=== PATIENT | female | born 1935 | race Caucasian/White ===

== ENCOUNTER → 2016-07-06 | Outpatient (CLI) | payer MEDICARE, OTHER ==
[~2016-07-06] MED LIST: KLONOPIN0.5 MG PO; LOMOTIL 0.025 M1 TA1 PO; SERTRALINE50 MG PO; VITAMIN D2000 IU PO; ZOFRAN ODT4 MG SL
== END | disposition home or self-care (01) ==
LOC: RAD 08:47
DX: J44.9 Chronic obstructive pulmonary disease, unspecified (principal)

== ENCOUNTER → 2016-07-10 | Outpatient (CLI) | payer MEDICARE, OTHER | END | disposition home or self-care (01) | LOC: MAMMO 03:01 | DX: Z12.31 Encounter for screening mammogram for malignant neoplasm of breast (principal) ==

== ENCOUNTER 2017-07-19 18:37 | Inpatient (IN) | payer MEDICARE, OTHER ==
[~2017-07-19] VITALS: Ht 157.4 cm; Wt 47.5 kg
--- NOTE | ~2017-07-19 | PR ---
[place], [place] [facility]GRESS NOTE [id number] UNIT #: [id number] ROOM: 406 DOCTOR: DESTINY ALEX MD BIRTHDATE: [birth year] DOS: 07/21/2017 SUBJECTIVE: The patient looks slightly confused this morning. She was wondering she was in the psych unit. She states that she is nauseous this morning. She did have a good food yesterday, did not have any emesis. Does not have any diarrhea. OBJECTIVE: VITAL SIGNS: Blood pressure is 127/69, pulse of 64, respirations 20, temperature 98. LUNGS: Clear. HEART: Regular. ABDOMEN: Soft, scaphoid. EXTREMITIES: Without any edema. She does appear to be slightly short of breath at rest. LABORATORY DATA: Shows a normal glucose, normal kidney functions. Potassium is normal. Blood count is normal. ASSESSMENT AND PLAN: 1. Viral syndrome resulting in nausea, vomiting and diarrhea. The patient was seen by PT yesterday and recommended jail. We are waiting for that to happen, hopefully on Sunday. 2. Possibility of urinary tract infection with confusion. Urine culture will be sent. Continue IV fluids right now. I am also ordering a CT angiogram to make sure she does not have underlying PE because of the continued mild shortness of breath. She does have history of asthma, but does not have an exacerbation. DESTINY ALEX MD CM:PNTRANS [id number] DESTINY ALEX MD 07/21/17 0959 interface
--- NOTE | ~2017-07-19 | DS ---
[place], [place] DISCHARGE SUMMARY NAME: [facility] #: [id number] UNIT #: [id number] ROOM: 406 DOCTOR: DESTINY ALEX MD BIRTHDATE: [birth year] DOS: 07/23/2017 DIAGNOSES: 1. Adult failure to thrive. 2. Major depression, moderate, recurrent. 3. Generalized anxiety disorder. 4. Hypokalemia. 5. Viral syndrome. HOSPITAL COURSE: The patient is known to us, comes in with complaints of nausea, emesis, abdominal pain and she had diarrhea for several days. She came to the Emergency Room where she was hypoxic and she was admitted. After admission, a CT of the chest was done, which showed lung nodules which will be followed as an outpatient. She has history of asthma, but did not have any exacerbations. This may have resulted in her hypoxemia. The patient was treated with IV fluids for nausea, vomiting, diarrhea and the viral syndrome. Anxiety was treated with her home medications. She was quite weak and tired and restless in the beginning, but she is slowly improved with therapy. Social service was consulted for possibility of placement for short-term rehabilitation, which the patient agreed and so the patient was discharged to [facility]. DESTINY ALEX MD CM:KHRIS [id number] DESTINY ALEX MD 08/06/1729 interface
--- NOTE | ~2017-07-19 | PR ---
[place], [place] PROGRESS NOTE NAME: [facility] UNIT #: [id number] ROOM: 406 DOCTOR: DESTINY ALEX MD BIRTHDATE: [birth year] DOS: 07/23/2017 SUBJECTIVE: The patient is doing fine without any complaints. OBJECTIVE: VITAL SIGNS: Graphic trend shows pressure 133/64, pulse of 73, respirations 20, temperature 98.5. LUNGS: Diminished breath sounds, clear. HEART: Regular. ABDOMEN: Soft. EXTREMITIES: Without any edema. ASSESSMENT AND PLAN: 1. Adult failure to thrive following a viral syndrome. Awaiting placement to [facility] today. 2. Major depression, moderate, recurrent, on Zoloft. We will add Remeron, should help with her sleep as well as appetite and depression. DESTINY ALEX MD CM:PNTRANS [id number] DESTINY ALEX MD 07/23/17 1445 interface
--- NOTE | ~2017-07-19 | WRIGHTHP ---
[place], [place] PATIENT HISTORY AND PHYSICAL EXAM NAME: [facility] #: [id number] UNIT #: [id number] ROOM: 406 DOCTOR: DESTINY ALEX MD BIRTHDATE: [birth year] DOS: 07/19/2017 HISTORY OF PRESENT ILLNESS: The patient is 81 years old, very well known to us. The patient says for the last 4-5 days, she has had diarrhea, nausea and emesis and has been getting sicker. She denies having any chest pains or palpitations. Has some increasing shortness of breath. Denies having any fever or chills. Her also was sick around the same time. She has been getting weaker and has been unable to take care of herself at home and finally decided to come into the Emergency Room. She was evaluated in the ER, was found to be hypoxic with a saturation in the low 80s on room air. PAST MEDICAL HISTORY: Significant for: 1. Mild intermittent asthma. 2. Generalized anxiety disorder. 3. Mild major depression, recurrent. 4. History of hysterectomy. MEDICATIONS: She is on Zoloft 50 and Klonopin 0.5. SOCIAL HISTORY: Nonsmoker, does not use any alcohol. Lives at home. She had one daughter who has . PHYSICAL EXAMINATION: GENERAL: She is awake and alert and oriented. VITAL SIGNS: Graphic trend shows a pressure 108/51, pulse of 60, respirations 18, temperature 97.8. LUNGS: Diminished breath sounds, clear. HEART: Regular. ABDOMEN: Soft, scaphoid. EXTREMITIES: Without any edema. LABORATORY DATA: WBC count is 7.0, hemoglobin 15.0, hematocrit 44.1. Lactic acid normal. Rapid flu negative. Comprehensive shows hypokalemia, potassium of 3.0, rest of the labs are okay. ASSESSMENT AND PLAN: 1. Adult failure to thrive following a viral syndrome. The patient would need PT, OT consultation and Social Service for a short term placement to rehab facility. 2. Nausea, vomiting, diarrhea, possibly flu-like viral syndrome. Flu titer was negative. 3. Hypokalemia. Supplementation is ordered. 4. Generalized anxiety disorder. Continue current medications. Plan is to hopefully discharge her to a rehab facility soon. 4. Hypoxic respiratory failure with history of acute intermittent asthma. The patient does not have any evidence of exacerbation and discontinue the steroids and breathing treatments can be made p.r.n. [place], [place] PATIENT HISTORY AND PHYSICAL EXAM NAME: [facility] UNIT #: [id number] ROOM: [facility] DOCTOR: DESTINY ALEX MD BIRTHDATE: [birth year] DESTINY ALEX MD CM:HISPHYS:PATIENT HISTORY AND PHYSICAL EXAMINATION 9 7 DESTINY ALEX MD 07/20/17926 interface
--- NOTE | ~2017-07-19 | PR ---
[place], [place] PROGRESS NOTE NAME: [facility] #: [id number] UNIT #: [id number] ROOM: 406 DOCTOR: DESTINY ALEX MD BIRTHDATE: [birth year] DOS: 07/22/2017 SUBJECTIVE: The patient has minimal nausea, but overall much improved. OBJECTIVE: VITAL SIGNS: Graphic trend shows a pressure of 123/63, pulse of 69, respirations 18, temperature 98.0. LUNGS: Clear. HEART: Regular. ABDOMEN: Soft. EXTREMITIES: Without any edema. LABORATORY DATA: Blood culture shows no bacterial growth. WBC count is 5.9, hemoglobin 11.6, hematocrit 35.5. BMP: Glucose 86, BUN 6, creatinine 0.32, sodium 141, potassium 3.3. CT of the chest did not show any pneumonia, but multiple small nodules were noted, which will be followed according to the criteria. ASSESSMENT AND PLAN: 1. Adult failure to thrive following a viral syndrome. The patient is awaiting placement, short term rehab to a nursing rehab center. Hopefully, we can arrange for that tomorrow. 2. Hypokalemia. Supplementation was given. 3. Nausea, emesis, possibly from the viral syndrome, which is resolving. 4. Generalized anxiety disorder, controlled. Plan is to discharge. DESTINY ALEX MD CM:PNTRANS [id number] DESTINY ALEX MD 07/22/17 1117 interface
[2017-07-19 18:48] VITALS: BP 1224/70; BP 124/70
[2017-07-19 19:20] VITALS: BP 120/72
[2017-07-19 19:46] LABS: BASO % 0.1 % (0.0-1.0); EOS % 0.3 % (1.0-4.0); HEMATOCRIT 44.1 % (37.0-47.0); LYMPH # 1.6 10*3/uL (1.3-4.4); LYMPH % 22.3 % (27.0-41.0); MEAN CELL VOLUME 85.8 fl (81.0-99.0); MEAN CORPUSCULAR HGB 29.2 pg (27.0-31.0); MEAN PLATELET VOLUME 10.3 fl (9.6-12.3); MONO # 0.7 10*3/uL (0.1-1.0); MONO % 9.8 % (3.0-9.0); NEUT # 4.7 10*3/uL (2.3-7.9); NEUT % 66.9 % (47.0-73.0); PLATELET COUNT AUTOMATED 226 10*3/uL (130-400); RED BLOOD COUNT 5.14 10*6/uL (4.10-5.10); RED CELL DISTRI WIDTH 14.1 % (0-14.5)
[2017-07-19 19:57] LABS: ACT PARTIAL THROMBO TIME 22.3 SECONDS (20.8-31.5)
[2017-07-19 20:06] LABS: ALBUMIN 3.7 gm/dl (3.1-4.5); ALKALINE PHOSPHATASE 57 U/L (45-117); BUN 9 mg/dl (7-24); CHLORIDE 100 mmol/L (98-107); CREATININE 0.57 mg/dL (0.55-1.02); LIPASE 56 U/L (73-393); SGOT/AST 22 IU/L (3-35); SGPT/ALT 22 U/L (12-78); SODIUM 140 mmol/L (136-145); TOTAL PROTEIN 6.9 gm/dL (6.4-8.2); TROPONIN I 0.019 ng/ml (<0.045)
[2017-07-19 21:05] VITALS: BP 130/68
[2017-07-19 22:00] VITALS: BP 129/66
[2017-07-20] VITALS: BP 108/51
[2017-07-20 06:14] LABS: BASO % 0.2 % (0.0-1.0); EOS % 0.5 % (1.0-4.0); LYMPH # 1.6 10*3/uL (1.3-4.4); MEAN CELL VOLUME 86.6 fl (81.0-99.0); MEAN CORPUSCULAR HGB 28.9 pg (27.0-31.0); MEAN CORPUSCULAR HGB CONC 33.3 g/dl (33.0-37.0); MEAN PLATELET VOLUME 10.7 fl (9.6-12.3); MONO # 0.7 10*3/uL (0.1-1.0); MONO % 13.4 % (3.0-9.0); NEUT # 3.1 10*3/uL (2.3-7.9); NEUT % 56.2 % (47.0-73.0); PLATELET COUNT AUTOMATED 198 10*3/uL (130-400); RED BLOOD COUNT 4.33 10*6/uL (4.10-5.10); RED CELL DISTRI WIDTH 14.3 % (0-14.5); WHITE BLOOD COUNT 5.5 10*3/uL (4.8-10.8)
[2017-07-20 06:22] LABS: BUN 10 mg/dl (7-24); CHLORIDE 104 mmol/L (98-107); CREATININE 0.47 mg/dL (0.55-1.02); POTASSIUM 3.2 mmol/L (3.5-5.1); SODIUM 143 mmol/L (136-145)
[2017-07-20 06:23] LABS: HEMATOCRIT 37.5 % (37.0-47.0); HEMOGLOBIN 12.5 g/dl (12.0-16.0)
[2017-07-20 08:00] VITALS: BP 122/62
[2017-07-20 12:00] VITALS: BP 127/66
[2017-07-20 16:00] VITALS: BP 115/67
[2017-07-20 20:00] VITALS: BP 134/67
[2017-07-21] VITALS: BP 127/69
[2017-07-21 06:12] LABS: BASO % 0.3 % (0.0-1.0); EOS # 0.1 10*3/uL (0.0-0.4); EOS % 1.5 % (1.0-4.0); HEMOGLOBIN 12.3 g/dl (12.0-16.0); LYMPH # 1.7 10*3/uL (1.3-4.4); LYMPH % 25.2 % (27.0-41.0); MEAN CELL VOLUME 87.7 fl (81.0-99.0); MEAN CORPUSCULAR HGB 29.1 pg (27.0-31.0); MEAN CORPUSCULAR HGB CONC 33.2 g/dl (33.0-37.0); MEAN PLATELET VOLUME 10.3 fl (9.6-12.3); MONO # 0.8 10*3/uL (0.1-1.0); MONO % 11.2 % (3.0-9.0); NEUT # 4.1 10*3/uL (2.3-7.9); NEUT % 61.1 % (47.0-73.0); PLATELET COUNT AUTOMATED 225 10*3/uL (130-400); RED BLOOD COUNT 4.22 10*6/uL (4.10-5.10); RED CELL DISTRI WIDTH 14.4 % (0-14.5); WHITE BLOOD COUNT 6.7 10*3/uL (4.8-10.8)
[2017-07-21 06:24] LABS: BUN 7 mg/dl (7-24); CHLORIDE 107 mmol/L (98-107); CREATININE 0.37 mg/dL (0.55-1.02); POTASSIUM 3.8 mmol/L (3.5-5.1); SODIUM 142 mmol/L (136-145)
[2017-07-21 08:00] VITALS: BP 132/62
[2017-07-21 12:00] VITALS: BP 130/62
[2017-07-21 16:00] VITALS: BP 109/50
[2017-07-21 20:00] VITALS: BP 119/71
[2017-07-22] VITALS: BP 123/63
[2017-07-22 06:14] LABS: BASO % 0.3 % (0.0-1.0); EOS # 0.1 10*3/uL (0.0-0.4); EOS % 1.9 % (1.0-4.0); HEMATOCRIT 35.8 % (37.0-47.0); HEMOGLOBIN 11.6 g/dl (12.0-16.0); LYMPH # 1.6 10*3/uL (1.3-4.4); LYMPH % 26.7 % (27.0-41.0); MEAN CELL VOLUME 90.6 fl (81.0-99.0); MEAN CORPUSCULAR HGB 29.4 pg (27.0-31.0); MEAN CORPUSCULAR HGB CONC 32.4 g/dl (33.0-37.0); MEAN PLATELET VOLUME 10.4 fl (9.6-12.3); MONO # 0.7 10*3/uL (0.1-1.0); MONO % 11.2 % (3.0-9.0); NEUT # 3.5 10*3/uL (2.3-7.9); NEUT % 59.2 % (47.0-73.0); PLATELET COUNT AUTOMATED 227 10*3/uL (130-400); RED BLOOD COUNT 3.95 10*6/uL (4.10-5.10); RED CELL DISTRI WIDTH 14.3 % (0-14.5); WHITE BLOOD COUNT 5.9 10*3/uL (4.8-10.8)
[2017-07-22 06:22] LABS: BUN 6 mg/dl (7-24); CHLORIDE 105 mmol/L (98-107); CREATININE 0.32 mg/dL (0.55-1.02); POTASSIUM 3.3 mmol/L (3.5-5.1); SODIUM 141 mmol/L (136-145)
[2017-07-22 08:00] VITALS: BP 128/66
[2017-07-22 12:00] VITALS: BP 127/66
[2017-07-22 16:00] VITALS: BP 129/74
[2017-07-22 20:00] VITALS: BP 111/50
[2017-07-23] VITALS: BP 133/64
[2017-07-23 07:32] LABS: CHLORIDE 105 mmol/L (98-107); POTASSIUM 3.7 mmol/L (3.5-5.1); SODIUM 142 mmol/L (136-145)
[2017-07-23 07:41] LABS: BUN 6 mg/dl (7-24); CREATININE 0.41 mg/dL (0.55-1.02)
[2017-07-23 08:00] VITALS: BP 109/61
[2017-07-23] MEDS ORDERED: MIRTAZAPINE15 M2 PO (08:09)
[2017-07-23] MEDS ORDERED: PROTONIX40 MG PO (08:09)
[2017-07-23 12:00] VITALS: BP 110/72
== END 2017-07-23 16:27 | disposition other institution (70) | DRG 865 ==
LOC: ED 18:37 → 4E 20:51 → EDHOLD 20:51 → 4E 21:23
PROVIDERS: Internal Medicine; Nurse Practitioner Family
DX: B34.9 Viral infection, unspecified (principal); G93.41 Metabolic encephalopathy; J96.91 Respiratory failure, unspecified with hypoxia; F33.9 Major depressive disorder, recurrent, unspecified; F41.1 Generalized anxiety disorder; J45.909 Unspecified asthma, uncomplicated; R62.7 Adult failure to thrive; E87.6 Hypokalemia; Z90.710 Acquired absence of both cervix and uterus

== ENCOUNTER → 2017-12-20 | Outpatient (CLI) | payer MEDICARE, OTHER ==
[~2017-12-20] MED LIST changes: +MIRTAZAPINE15 M2 PO; +PROTONIX40 MG PO
== END | disposition home or self-care (01) ==
LOC: CT 03:24
DX: R06.02 Shortness of breath (principal); R63.4 Abnormal weight loss

== ENCOUNTER 2018-03-15 02:14 | Emergency (ER) | payer MEDICARE, OTHER ==
[~2018-03-15] VITALS: Ht 162.5 cm; Wt 45.4 kg
--- NOTE | ~2018-03-15 | EKG ---
[place], [place] ELECTROCARDIOGRAM REPORT NAME: [facility] UNIT #: [id number] ROOM: DOCTOR: EPIPHANY DRAFT REPORT BIRTHDATE: [birth year] [facility] Test Date: 2018-03-15 Test Time: 02:28:16 Pat Name: [facility] Department: Room: Gender: F Manager [place]: : [id number] Requested By: BAY WARD Order Number: [id number] Reading MD: Arnold Phillips MD Measurements Intervals [place] Rate: 72 P: 37 AR: 137 QRS: -6 QRSD: 81 T: 21 QT: 412 QTc: 451 Interpretive Statements Sinus rhythm No previous ECG available for comparison Electronically Signed On 03-15-2018 12:18:12 PST by Arnold Phillips MD CM:EKGRPT:ELECTROCARDIOGRAM REPORT [id number] BAY WARD MD EPIPHANY DRAFT REPORT BAY WARD MD
[2018-03-15 02:33] LABS: BASO % 0.4 % (0.0-1.0); EOS # 0.2 10*3/uL (0.0-0.4); EOS % 1.6 % (1.0-4.0); HEMATOCRIT 40.6 % (37.0-47.0); HEMOGLOBIN 13.5 g/dl (12.0-16.0); LYMPH % 10.7 % (27.0-41.0); MEAN CELL VOLUME 89.2 fl (81.0-99.0); MEAN CORPUSCULAR HGB 29.7 pg (27.0-31.0); MEAN CORPUSCULAR HGB CONC 33.3 g/dl (33.0-37.0); MEAN PLATELET VOLUME 9.9 fl (9.6-12.3); MONO # 1.1 10*3/uL (0.1-1.0); MONO % 10.8 % (3.0-9.0); NEUT # 7.4 10*3/uL (2.3-7.9); NEUT % 76.2 % (47.0-73.0); PLATELET COUNT AUTOMATED 213 10*3/uL (130-400); RED BLOOD COUNT 4.55 10*6/uL (4.10-5.10); RED CELL DISTRI WIDTH 14.3 % (0-14.5); WHITE BLOOD COUNT 9.7 10*3/uL (4.8-10.8)
[2018-03-15 02:50] LABS: ALBUMIN 3.6 gm/dl (3.1-4.5); ALKALINE PHOSPHATASE 64 U/L (45-117); BUN 15 mg/dl (7-24); CHLORIDE 103 mmol/L (98-107); CREATININE 0.49 mg/dL (0.55-1.02); LIPASE 114 U/L (73-393); POTASSIUM 3.3 mmol/L (3.5-5.1); SGOT/AST 19 IU/L (3-35); SGPT/ALT 19 U/L (12-78); SODIUM 142 mmol/L (136-145); TOTAL PROTEIN 6.9 gm/dL (6.4-8.2)
[2018-03-15 02:51] LABS: TROPONIN I < 0.015 ng/ml (<0.045)
== END 2018-03-15 04:59 | disposition short-term general hospital (02) ==
LOC: ED 02:14
PROVIDERS: Emergency Medicine Emergency Medical Services
DX: S32.011A Stable burst fracture of first lumbar vertebra, initial encounter for closed fracture (principal); M54.6 Pain in thoracic spine; M81.0 Age-related osteoporosis without current pathological fracture; Z79.899 Other long term (current) drug therapy; Z90.710 Acquired absence of both cervix and uterus; W01.0XXA Fall on same level from slipping, tripping and stumbling without subsequent striking against object, initial encounter; Y93.E5 Activity, floor mopping and cleaning; Y92.000 Kitchen of unspecified non-institutional (private) residence as the place of occurrence of the external cause; Y99.8 Other external cause status

== ENCOUNTER 2022-08-22 08:32 | Emergency (ER) | payer OTHER ==
[~2022-08-22] VITALS: Ht 157.4 cm; Wt 47.6 kg
[2022-08-22] MEDS ORDERED: MELATONIN3 MG PO (09:02)
[2022-08-22] MEDS ORDERED: MONTELUKAST SOD10 MG PO (09:03)
[2022-08-22] MEDS ORDERED: ALENDRONATE SOD70 M1 PO (09:03)
[2022-08-22] MEDS ORDERED: BUDESONIDE-FO10.2 GM INH (09:05)
[2022-08-22] MEDS ORDERED: TYLENOL EXTRA500 M2 PO (09:08)
[2022-08-22] MEDS ORDERED: ALL DAY ALLERGY10 M2 PO (09:09)
[2022-08-22] MEDS ORDERED: SENNA8.6 MG PO (09:11)
[2022-08-22] MEDS ORDERED: VITAMIN D325 MCG PO (09:11)
[2022-08-22] MEDS ORDERED: ONE DAILY WOME1 EAC3 PO (09:13)
[2022-08-22] MEDS ORDERED: MUCUS RELIEF600 MG PO (09:13)
[2022-08-22] MEDS ORDERED: CALCIUM MAGNES1 EAC1 PO (09:16)
[2022-08-22 09:37] LABS: BASO % 0.4 % (0.0-1.0); EOS # 0.1 10*3/uL (0.0-0.4); EOS % 1.3 % (1.0-4.0); HEMATOCRIT 41.4 % (37.0-47.0); LYMPH % 13.9 % (27.0-41.0); MEAN CORPUSCULAR HGB 31.1 pg (27.0-31.0); MEAN CORPUSCULAR HGB CONC 32.1 g/dl (33.0-37.0); MEAN PLATELET VOLUME 9.4 fl (9.6-12.3); MONO # 0.8 10*3/uL (0.1-1.0); MONO % 10.8 % (3.0-9.0); NEUT # 5.4 10*3/uL (2.3-7.9); NEUT % 73.3 % (47.0-73.0); PLATELET COUNT AUTOMATED 241 10*3/uL (130-400); RED BLOOD COUNT 4.27 10*6/uL (4.10-5.10); RED CELL DISTRI WIDTH 13.4 % (0-14.5); WHITE BLOOD COUNT 7.4 10*3/uL (4.8-10.8)
[2022-08-22 10:22] LABS: ALKALINE PHOSPHATASE 46 U/L (46-116); BUN 6 mg/dl (9-23); CHLORIDE 103 mmol/L (98-107); POTASSIUM 3.7 mmol/L (3.4-5.1); SGPT/ALT 22 U/L (10-49); TOTAL PROTEIN 6.6 gm/dL (6.0-8.0)
[2022-08-22] MEDS ORDERED: HYDROCODONE-AC1 EAC1 PO (10:40)
[2022-08-24] MEDS ORDERED: COLACE100 MG PO (17:04)
[2022-08-24] MEDS ORDERED: SYMB80 INH (17:04)
[2022-08-24] MEDS ORDERED: BACLOFEN5 MG PO (17:05)
[2022-08-24] MEDS ORDERED: EXELON1 EACH TD (17:07)
[2022-08-24] MEDS ORDERED: BUSPAR5 MG PO (17:08)
[2022-08-24] MEDS ORDERED: ATIVAN0.5 MG PO (17:08)
[2022-08-24] MEDS ORDERED: MIRALAX POWDER17 G1 PO (17:09)
[2022-08-24] MEDS ORDERED: RIVASTIGMINE T1.5 M1 PO (17:11)
== END 2022-08-22 11:54 ==
LOC: ED 08:32
PROVIDERS: Emergency Medicine
DX: M54.50 Low back pain, unspecified (principal); F41.9 Anxiety disorder, unspecified; J44.9 Chronic obstructive pulmonary disease, unspecified; Z90.710 Acquired absence of both cervix and uterus; Z98.890 Other specified postprocedural states